=== PATIENT | male | born 1990 | race Caucasian/White ===

== ENCOUNTER 2018-12-15 06:51 | Day surgery (SDC) | payer BC ==
[~2018-12-15 06:51] MED LIST: Sodium Chloride 0.9% 10 ML Syringe FLUSH PRN
[2018-12-15] MEDS: Lidocaine 1%/Sod Bicarbonate in NS 8.4% 1 ML Syringe IDERM PRN (07:15)
[2018-12-15] MEDS ORDERED: Lidocaine 1% 4 ML ONE (07:15)
[2018-12-15] MEDS ORDERED: Lactated Ringers 1,000 ML ONE (07:15)
[2018-12-15] MEDS ORDERED: Rocuronium 50 MG/5 ML Vial ONE (07:15)
[2018-12-15] MEDS: Lactated Ringers 1,000 ML IV SCH (07:15)
[2018-12-15] MEDS ORDERED: Ondansetron 4 MG/2 ML SDV ONE (07:15)
[2018-12-15] MEDS ORDERED: Midazolam 1 MG/ML 2 ML SDV ONE (07:16)
[2018-12-15] MEDS ORDERED: Propofol 200 MG/20 ML SDV ONE (07:16)
[2018-12-15] MEDS ORDERED: fentaNYL 250 MCG/5 ML SDV ONE (07:16)
[2018-12-15] MEDS ORDERED: Dexamethasone 4 MG/ML 5 ML MDV ONE (07:16)
[2018-12-15] MEDS ORDERED: Ketorolac 30 MG/ML SDV ONE (07:16)
[2018-12-15] MEDS: Clindamycin Phosphate in D5W 900 MG in Premix Bag 1 BAG IV SCH ×2 (07:26)
[2018-12-15] MEDS: Lidocaine 1% with EPINEPHrine 1:100,000 20 ML MDV ONE (08:22)
[2018-12-15] MEDS: Bupivacaine 0.5%/EPINEPHrine 1:200,000 50 ML MDV ONE (08:22)
[2018-12-15] MEDS ORDERED: HYDROmorphone 0.5 MG/0.5 ML Syringe ONE (08:59)
--- NOTE | 2018-12-15 09:03 | PCM.PREANE ---
Preanesthetic Assessment - Anesthesia/Transfusion/Family Hx Anesthesia History: Prior Anesthesia Without Reaction Family History of Anesthesia Reaction: No - Review of Systems General: No Symptoms Pulmonary: No Symptoms Cardiovascular: No Symptoms Gastrointestinal: No Symptoms Neurological: No Symptoms Other: Reports: None - Physical Assessment NPO Status Date: 12/14/18 NPO Status Time: 20:00 O2 Sat by Pulse Oximetry: 99 Respiratory Rate: 16 Vital Signs: Last Vital Signs Temp 36.8 C 12/15/18 07:00 Pulse 88 12/15/18 07:00 Resp 16 12/15/18 07:00 BP 129/83 12/15/18 07:00 Pulse Ox 99 12/15/18 07:00 Height: 1.78 m Weight: 78.018 kg ASA Class: 1 Mental Status: Alert & Oriented x3 Airway Class: Mallampati = 1 Dentition: Reports: Normal Dentition Thyro-Mental Finger Breadths: 3 Mouth Opening Finger Breadths: 3 ROM/Head Extension: Full Lungs: Clear to Auscultation, Normal Respiratory Effort Cardiovascular: Regular Rate, Regular Rhythm - Lab Values: Laboratory Last Values WBC 4.75 K/mm3 (4.23-9.07) 12/15/18 07:15 RBC 5.46 M/mm3 (4.63-6.08) 12/15/18 07:15 Hgb 16.1 gm/L (13.7-17.5) 12/15/18 07:15 Hct 45.5 % (40.1-51.0) 12/15/18 07:15 MCV 83.3 fl (79.0-92.2) 12/15/18 07:15 MCH 29.5 pg (25.7-32.2) 12/15/18 07:15 MCHC 35.4 g/dl (32.2-35.5) 12/15/18 07:15 RDW Std Deviation 37.7 fL (35.1-43.9) 12/15/18 07:15 Plt Count 215 K/mm3 (163-337) 12/15/18 07:15 MPV 10.2 fl (9.4-12.3) 12/15/18 07:15 Neut % (Auto) 45.9 % (34.0-67.9) 12/15/18 07:15 Lymph % (Auto) 37.9 % (21.8-53.1) 12/15/18 07:15 Haskell % (Auto) 13.5 % (5.3-12.2) H 12/15/18 07:15 Eos % (Auto) 2.5 (0.8-7.0) 12/15/18 07:15 Baso % (Auto) 0.2 % (0.1-1.2) 12/15/18 07:15 Neut # (Auto) 2.18 K/mm3 (1.78-5.38) 12/15/18 07:15 Lymph # (Auto) 1.80 K/mm3 (1.32-3.57) 12/15/18 07:15 Haskell # (Auto) 0.64 K/mm3 (0.30-0.82) 12/15/18 07:15 Eos # (Auto) 0.12 K/mm3 (0.04-0.54) 12/15/18 07:15 Baso # (Auto) 0.01 K/mm3 (0.01-0.08) 12/15/18 07:15 Sodium 141 mEq/L (136-145) 12/15/18 07:15 Potassium 3.6 mEq/L (3.5-5.1) 12/15/18 07:15 Chloride 105 mEq/L (98-107) 12/15/18 07:15 Carbon Dioxide 25 mEq/L (21-32) 12/15/18 07:15 Anion Gap 14.6 (5-15) 12/15/18 07:15 BUN 14 mg/dL (7-18) 12/15/18 07:15 Creatinine 1.0 mg/dL (0.7-1.3) 12/15/18 07:15 Est Cr Clr Drug Dosing 115.58 mL/min 12/15/18 07:15 Estimated GFR (MDRD) > 60 mL/min (>60) 12/15/18 07:15 BUN/Creatinine Ratio 14.0 (14-18) 12/15/18 07:15 Glucose 98 mg/dL (74-106) 12/15/18 07:15 Calcium 9.3 mg/dL (8.5-10.1) 12/15/18 07:15 - Allergies Allergies/Adverse Reactions: Allergies Allergy/AdvReac Type Severity Reaction Status Date / Time cefaclor Allergy Hives Verified 12/14/18 13:59 - Anesthesia Plan Pre-Op Medication Ordered: Anxiolytic - Acknowledgements Anesthesia Type Planned: General Anesthesia Pt an Appropriate Candidate for the Planned Anesthesia: Yes Alternatives and Risks of Anesthesia Discussed w Pt/Guardian: Yes Pt/Guardian Understands and Agrees with Anesthesia Plan: Yes PreAnesthesia Questionnaire - Past Health History Medical/Surgical History: Denies Medical/Surgical History - SUBSTANCE USE Smoking Status *Q: Never Smoker Recreational Drug Use History: No - HOME MEDS Home Medications: Home Meds . [No Known Home Meds] 12/14/18 [History] - CURRENT (IN HOUSE) MEDS Current Meds: Current Medications Lactated Ringer's (Ringers, Lactated) 1,000 mls @ 125 mls/hr IV ASDIRECTED KATH Stop: 12/15/18 23:00 Last Admin: 12/15/18 07:15 Dose: 125 mls/hr Clindamycin Phosphate 900 mg/ (Premix) 50 mls @ 100 mls/hr IV ONETIME KATH Stop: 12/15/18 11:00 Last Admin: 12/15/18 07:26 Dose: 100 mls/hr Lidocaine/Sodium Bicarbonate (Buffered Lidocaine 1% In Ns 8.4%) 0.25 ml IDERM ONETIME PRN PRN Reason: Prior to IV Start Stop: 12/15/18 18:00 Last Admin: 12/15/18 07:15 Dose: 0.25 ml Sodium Chloride (Saline Flush) 10 ml FLUSH ASDIRECTED PRN PRN Reason: Keep Vein Open Stop: 12/15/18 18:00 Discontinued Medications Bupivacaine HCl/Epinephrine Bitart (Marcaine 0.5%/Epinephrine 1:200,000) Confirm Administered Dose 50 ml .ROUTE .STK-MED ONE Stop: 12/15/18 07:14 Last Admin: 12/15/18 08:22 Dose: 20 ml Dexamethasone (Dexamethasone) Confirm Administered Dose 20 mg .ROUTE .STK-MED ONE Stop: 12/15/18 07:17 Fentanyl (Sublimaze) Confirm Administered Dose 250 mcg .ROUTE .STK-MED ONE Stop: 12/15/18 07:17 Lidocaine HCl (Xylocaine-Mpf 1%) Confirm Administered Dose 4 mls @ as directed .ROUTE .STK-MED ONE Stop: 12/15/18 07:16 Lactated Ringer's (Ringers, Lactated) Confirm Administered Dose 1,000 mls @ as directed .ROUTE .STK-MED ONE Stop: 12/15/18 07:16 Ketorolac Tromethamine (Toradol) Confirm Administered Dose 30 mg .ROUTE .STK- MED ONE Stop: 12/15/18 07:17 Lidocaine/Epinephrine (Xylocaine 1% With Epinephrine 1:100,000) Confirm Administered Dose 20 ml .ROUTE .ST-MED ONE Stop: 12/15/18 07:14 Last Admin: 12/15/18 08:22 Dose: 20 ml Midazolam HCl (Versed 1 Mg/Ml) Confirm Administered Dose 2 mg .ROUTE .STK-MED ONE Stop: 12/15/18 07:17 Ondansetron HCl (Zofran) Confirm Administered Dose 4 mg .ROUTE .STK-MED ONE Stop: 12/15/18 07:16 Propofol (Diprivan 20 Ml) Confirm Administered Dose 400 mg .ROUTE .STK-MED ONE Stop: 12/15/18 07:17 Rocuronium Empire (Zemuron) Confirm Administered Dose 50 mg .ROUTE .STK-MED ONE Stop: 12/15/18 07:16
[2018-12-15] MEDS ORDERED: diphenhydrAMINE 50 MG/ML SDV IVPUSH PRN (09:04)
[2018-12-15] MEDS ORDERED: Ondansetron 4 MG/2 ML SDV IVPUSH PRN (09:04)
[2018-12-15] MEDS ORDERED: fentaNYL 100 MCG/2 ML SDV IVPUSH PRN (09:04)
[2018-12-15] MEDS ORDERED: HYDROmorphone 0.5 MG/0.5 ML Syringe IVPUSH PRN (09:04)
[2018-12-15] MEDS ORDERED: Neostigmine Methylsulfate 1 MG/ML 5 ML Syringe ONE (09:22)
--- NOTE | 2018-12-15 09:34 | PCM.OPNOTE ---
- General Post-Op/Procedure Note Date of Surgery/Procedure: 12/15/18 Findings: left indirect inguinal hernia Pre Op Diagnosis: left inguinal hernia Post-Op Diagnosis: Same Anesthesia Technique: General ET Tube Primary Surgeon: Martina Butler Anesthesia Provider: Viri Talley Pathology: None Fluid Replacement, Intraop: 1,400 Output, Urine Amount: 0 EBL in mLs: 0 Drain/Tube Comments:: None Complications: None apparent Condition: Good
--- NOTE | 2018-12-15 09:35 | PCM.PRNOTE ---
- Free Text/Narrative Note: Operative Report Date of surgery: December 15, 2018 Preoperative diagnosis: Left Inguinal hernia Postoperative diagnosis: same Surgeon: Dr. Martina Butler Anesthesia: General ET Operator Maintainer: Viri Talley CRNA Estimated blood loss: 5 mL IV fluids: 1400 mL Urine output: 0 mL Drains and lines: None Indication for the procedure: The patient is a 28-year-old abdomen who presented to my office with complaint of a symptomatic left inguinal hernia. I discussed a procedure of a laparoscopic left inguinal hernia repair with mesh with the patient. We also discussed possible bilateral repair since he had a questionable right inguinal hernia as well as conversion to open. Risks of infection, bleeding and mesh complication was reviewed, and written consent was obtained Description of the procedure: The patient presented to the outpatient holding area on the day for procedure history and physical were verified and the consent was present and on the chart. He was taken back to the operating room and placed in supine position on the operating table. SCD boots were placed and functional prior to the service procedure. The patient received preoperative antibiotics as per SCIP protocol. The patient voided prior to going back to the operating room, so no Mims catheter was placed. The patient had successful induction of general anesthesia and was intubated without difficulty. The patient's arms were tucked and the pressure points were padded. The patient was prepped and draped in standard surgical fashion and a timeout was performed. The abdomen was draped with Ioban to begin. A 5 mm incision was then made in the left upper quadrant just under the subcostal margin. A 5 mm port was then inserted into the abdomen with the Visiport technique. The abdomen was insufflated to 15 mmHg. There was no evidence of any injury in the area where we had entered the abdomen. We proceeded to place a TAP block with mixed 1% lidocaine with epinephrine and 0.5% bupivacaine with epinephrine. We then surveyed the area of hernias in bilateral lower quadrants. He had a fairly large left inguinal hernia consistent with an indirect inguinal hernia. The abdomen was desufflated with the [address] left in place as a venting port. We proceeded to make an infraumbilical incision on the left side of the midline down to the level of the anterior rectus sheath. An incision was made through the anterior sheath and the rectus muscles were bluntly swept aside to expose the posterior sheath. The balloon dissector was then placed in to this area and extended down to the pelvis. The balloon dissector was then inflated while visualizing the dissection. Once we had sufficiently greater blunt dissection, the balloon was removed and the balloon port was then inflated to hold the port in place. Insufflation was attached and we inserted a camera to inspect the area. We proceeded to place two 5mm ports in the infraumbilical midline. We then turned our attention to the area of the hernia. There was evidence of an indirect inguinal hernia. We then proceeded to dissect the hernia sac away from the spermatic cord. A large left-sided hernia mesh was then rolled and placed into the dissection cavity. It was tacked laterally to the abdominal wall and medially to Long's ligament, as well as anteriorly to the abdominal muscles. We had good coverage over the hernia defect. The infraumbilical space was then desufflated and the abdomen was reinsufflated. The mesh was completely covered with peritoneum. The abdomen was then desufflated and the ports were removed. The fascial opening in the infraumbilical area was closed using a 0 Vicryl suture. The incision sites were then closed with 4-0 Monocryl suture. Dermabond surgical glue were used to cover the incisions. The patient tolerated the procedure well and was transported to the PACU in stable condition. All sponge and needle counts correct. Complications: None apparent. Disposition: Stable to PACU Martina Butler MD General Surgery
--- NOTE | 2018-12-15 09:38 | PCM.POSTAN ---
POST ANESTHESIA ASSESSMENT - MENTAL STATUS Mental Status: Alert, Oriented - VITAL SIGNS Pulse Rate: 86 SaO2: 99 Resp Rate: 13 Blood Pressure: 135/79 Temperature: 36.7 C - RESPIRATORY Respiratory Status: Respiratory Rate WNL, Airway Patent, O2 Saturation Stable, Supplemental Oxygen - CARDIOVASCULAR CV Status: Pulse Rate WNL, Blood Pressure Stable - GASTROINTESTINAL GI Status: No Symptoms - POST OP HYDRATION Hydration Status: Adequate & Stable
--- NOTE | 2018-12-15 13:13 | PCM48HPAN ---
Post Anesthesia Note - EVALUATION WITHIN 48HRS OF ANESTHETIC Vital Signs in Normal Range: Yes Patient Participated in Evaluation: Yes Respiratory Function Stable: Yes Airway Patent: Yes Cardiovascular Function Stable: Yes Hydration Status Stable: Yes Pain Control Satisfactory: Yes Nausea and Vomiting Control Satisfactory: Yes Mental Status Recovered: Yes
== END 2018-12-15 11:09 | disposition home or self-care (01) ==
LOC: JD.SDS 06:51
PROVIDERS: ATTEND Surgery
DX: K40.90 Unilateral inguinal hernia, without obstruction or gangrene, not specified as recurrent (principal); F17.220 Nicotine dependence, chewing tobacco, uncomplicated; Z88.1 Allergy status to other antibiotic agents
CPT/HCPCS: 36415; 49650; 80048; 85025; C1781; J1100; J1170; J1885; J2001; J2250; J2405; J2704; J2710; J3010; J3490; J7120; 00840